=== PATIENT | female | born 1995 | race Hispanic/Latino ===

== ENCOUNTER 2017-12-16 08:49 | Outpatient (CLI) | payer OTHER | END 2017-12-16 08:50 | disposition home or self-care (01) | LOC: BICULT 08:49 | PROVIDERS: ATTEND Specialist | DX: N60.11 Diffuse cystic mastopathy of right breast (principal); N64.4 Mastodynia; N63.10 Unspecified lump in the right breast, unspecified quadrant ==

== ENCOUNTER 2018-01-02 16:22 | Outpatient (CLI) | payer OTHER ==
[2018-01-02 12:56] LABS: #Eosinphils 0.1 thou/uL (0.0-0.7); #Monocytes 0.5 thou/uL (0.11-0.59); %Basophils 0.6 % (0.0-1.0); %Eosinophils 0.9 % (0.0-10.0); %Lymphocytes 26.7 % (28.0-48.0); %Monocytes 6.2 % (0.0-4.0); %Neutrophils 65.6 % (31.0-61.0); Hemoglobin 14.5 g/dL (12.0-16.0); Mean Corpuscular HGB CONC 33.8 g/dL (32.0-36.0); Mean Corpuscular Hemoglobin 31.8 pg (25.0-35.0); Mean Corpuscular Volume 94.2 fL (78.0-98.0); Mean Platelet Volume 7.2 fL (7.4-10.4); Platelet Count 266 thou/uL (130-400); Red Blood Cell (RBC) Count 4.55 mill/uL (4.00-5.20); White Blood Cell (WBC) Count 7.6 thou/uL (4.8-10.8)
[2018-01-02 13:11] LABS: Anion Gap 11 mmol/L (10-20); BUN (Urea Nitrogen) 9 mg/dL (7.0-18.7); Calc. Creatinine Clearance 0 mL/min (70-130); Calcium 10.4 mg/dL (7.8-10.44); Carbon Dioxide 27 mmol/L (22-29); Chloride 104 mmol/L (98-107); Estimated GFR-MDRD Greater than 90; Glucose 71 mg/dL (70-105); Potassium 3.4 mmol/L (3.5-5.1); Sodium 139 mmol/L (136-145)
[2018-01-02 13:13] LABS: BHCG - Serum Negative (NEGATIVE); Pregs Control Background? CLEAR/WHITE (CLR/WHITE); Pregs Control Bar Appear? YES (CONTROL BAR)
--- NOTE | 2018-01-02 16:34 | EKG ---
Test Reason : Blood Pressure : / mmHG Vent. Rate : 064 BPM Atrial Rate : 064 BPM P-R Int : 126 ms QRS Dur : 082 ms QT Int : 402 ms P-R-T Axes : 050 079 041 degrees QTc Int : 414 ms Normal sinus rhythm with sinus arrhythmia Normal ECG No previous ECGs available Confirmed by OSCAR CHAVEZ ([id number]) on 01/02/2018 4:33:47 PM Referred By: GEMA Confirmed By:OSCAR CHAVEZ
== END 2018-01-02 16:23 | disposition home or self-care (01) ==
LOC: LABBT 16:22
PROVIDERS: ATTEND Specialist
DX: Z01.812 Encounter for preprocedural laboratory examination (principal); N63.10 Unspecified lump in the right breast, unspecified quadrant
CPT/HCPCS: 80048; 84703; 85025; 93005; 93010

== ENCOUNTER 2018-01-09 09:34 | Day surgery (SDC) | payer OTHER ==
[2018-01-02 12:03] VITALS: BMI 24.0
[2018-01-09] MEDS ORDERED: Ketorolac Tromethamine 30 MG/ML VIAL ONE (10:15)
[2018-01-09] MEDS ORDERED: CEFAZOLIN/Water 2 GM/20 ML SYRINGE ONE (10:15)
[2018-01-09] MEDS ORDERED: Midazolam HCl 2 mg/2 ml Vial ONE (11:24)
[2018-01-09] MEDS ORDERED: Fentanyl 100 MCG/2 ML VIAL ONE (11:36)
[2018-01-09] MEDS ORDERED: Bupivacaine/Epinephrine 0.25% 30 ML VIAL ONE (11:37)
--- NOTE | 2018-01-13 11:42 | OP ---
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 OPERATION PERFORMED: Excisional biopsy of right breast mass. SURGEON: García Trimble M.D. ANESTHESIA: General with laryngeal mask airway. INDICATIONS: The patient is a 22-year-old healthy female. She presents with a palpable mas s in the lateral right breast. Ultrasound reveals a lobulated lesion with findings consistent with a fibroadenoma. She desires and I agree with excision of this lesion. DESCRIPTION OF OPERATION: Informed consent was obtained. The patient was taken to the operating laura m where general anesthesia obtained with the patient in supine position. Right breast was prepped wi th ChloraPrep and draped in sterile fashion. Local anesthetic was infiltrated with 0.25% Marcaine wi th epinephrine. Transverse incision was created about the 9 o'clock region of the right breast. Dis section was carried through skin and subcutaneous tissue. The mass was easily palpable, grasped, and sharply dissected circumferentially. The anterior aspect had a smooth rounded lobulated appearance. The underside was attached to the glandular tissue of the breast. It was passed off the field. Me ticulous hemostasis was obtained within wound. The wound was infiltrated with additional local anest hetic and then closed in layers with 3-0 and 4-0 Monocryl suture. Dermabond was placed externally. There were no complications. The patient tolerated the procedure well and was taken to recovery in s table condition.
== END 2018-01-09 14:13 | disposition home or self-care (01) ==
LOC: SDC 09:34
PROVIDERS: ATTEND Specialist
PROC: 0HBT0ZX Excision of Right Breast, Open Approach, Diagnostic (ICD-10-PCS; principal; 2018-01-09)
DX: D24.1 Benign neoplasm of right breast (principal); Z88.8 Allergy status to other drugs, medicaments and biological substances
CPT/HCPCS: 88305; J0131; J1885; J2250; J3010

== ENCOUNTER 2018-06-04 10:47 | Emergency (ER) | payer OTHER ==
[2018-06-04] MEDS ORDERED: diphenhydrAMINE 50 MG/ML VIAL ONE ×2 (11:21→11:24)
[2018-06-04] MEDS ORDERED: methylPREDNISolone Sod Succ/PF 125 MG/2 ML VIAL ONE (11:29)
[2018-06-04] MEDS ORDERED: Famotidine 20 MG TAB ONE (11:29)
[2018-06-04] MEDS ORDERED: Water For Inject, Bacteriostat 30 ML ONE (11:30)
== END 2018-06-04 13:01 | disposition home or self-care (01) ==
LOC: ERS 10:47
DX: T78.40XA Allergy, unspecified, initial encounter (principal); J02.9 Acute pharyngitis, unspecified
CPT/HCPCS: 87081; 87430; 96372; J1200; J2930

== ENCOUNTER 2018-07-21 21:58 | Emergency (ER) | payer OTHER ==
[2018-07-21] MEDS ORDERED: predniSONE 20 MG TAB ONE (23:22)
== END 2018-07-22 00:19 | disposition home or self-care (01) ==
LOC: ERS 21:58
DX: T78.40XA Allergy, unspecified, initial encounter (principal); Z79.899 Other long term (current) drug therapy
CPT/HCPCS: 99283; J7506